=== PATIENT | male | born 1950 | race Two or more races ===

== ENCOUNTER 2025-04-09 13:52 | Emergency (ER) | payer OTHER, SELFPAY ==
[2025-04-09 13:53] VITALS: BMI 26.3
[2025-04-09 14:10] VITALS: BP 174/84; PULSE 60; RESP 18; TEMP 36.8; O2SAT 97
--- NOTE | 2025-04-09 14:18 | EDNOTE_ITS ---
ED Wound/Laceration-RME/HPI General Chief Complaint: Wound/Laceration Stated Complaint: LAC TO HEAD Time Seen by Provider: 04/09/25 14:01 Source: patient Arrival date/time: 04/09/25 13:52 Mode of arrival: ambulatory Limitations: no limitations RME / HPI Place: other Patient tetanus UTD: Yes Context: accidental Associated symptoms: pain RME / HPI narrative: This patient is an otherwise healthy 74-year-old male who arrives to the ED today for evaluation of a superior left-sided head laceration sustained approximately 1 hour prior to arrival. [place] on a cabinet. Patient received some [place] at the casino and arrives with a friend on a nonactive bleeding laceration. Patient denies any LOC. Patient's tetanus is up-to-date. Related Data Previous Rx's ?Medication ?Instructions ?Recorded cephalexin 250 mg capsule 250 mg PO Q8H 7 days #21 cap s 04/09/25 ibuprofen 600 mg tablet (IBU) 600 mg PO Q6H PRN fever or pain 04/09/25 #20 tabs Allergies Allergy/AdvReac Type Severity Reaction Status Date / Time No Known Allergies Allergy Verified 04/09/25 13:54 Review of Systems Review of Systems Systems Reviewed: All systems reviewed, normal except as documented Past Medical History Past Medical History NEUROLOGIC: Negative Neurological Disorders CARDIAC: Negative Cardiac Disorders GENITOURINARY: Negative Genitourinary Disorders Social History SMOKING STATUS: Never smoker ED Exam Narrative Physical exam: Patient arrives with a bandage head wound. Patient does not look toxic. General Limitations: Present no limitations General appearance: Present alert and in no apparent distress Head Head exam: Present other (Patient displays a 5 cm vertical laceration to the left side superior scalp. Mild active bleed. Wound is not deep. No skull depression or deformities.) Eye Eye exam: Present normal appearance, PERRL and EOMI ENT ENT exam: Present normal exam, normal oropharynx and mucous membranes moist Neck Neck exam: Present normal inspection, full ROM and trachea midline Chest Chest inspection: Present normal inspection and symmetric chest wall rise Respiratory Respiratory exam: Present normal lung sounds bilaterally Cardiovascular Cardiovascular exam: Present regular rate, normal rhythm and normal heart sounds Abdominal Exam Abdominal exam: Present soft and normal bowel sounds Extremities Exam Extremities exam: Present normal inspection and full ROM Back Exam Back exam: Present normal inspection and full ROM Neurological Exam Neurological exam: Present alert, oriented X3 and CN II-XII intact Psychiatric Psychiatric exam: Present normal affect and normal mood Skin Skin exam: Present warm, dry, intact and normal color Course Quality Measures none Vital Signs Vital signs: Vital Signs Temperature 98.3 F 04/09/25 14:10 Pulse Rate 60 04/09/25 14:10 Respiratory Rate 18 04/09/25 14:10 Blood Pressure 174/84 H 04/09/25 14:10 Pulse Oximetry (%) 97 04/09/25 14:10 Oxygen Delivery Method Room Air 04/09/25 14:10 As noted above PROCEDURES: Procedure Comment Sterile field was placed on the left sided 5 cm superior scalp laceration. Copious irrigation performed. 4 cezar were placed without event. Minimal blood loss. Patient tolerated procedure well. Clean dressing applied. Wound / Laceration MDM Narrative MDM Narrative:: Patient tolerated stable procedure well. Advised patient to utilize antibiotics as directed to completion, pain medication as needed and patient has been advised to do daily dressing changes. Patient to return to ED or primary care provider in 10 days for reevaluation and possible staple removal. Patient data External records reviewed:: [facility] previous records Clinical information provided by:: patient Social determinants that could affect healthcare access:: none Patient has the following chronic illnesses:: None How is presenting disease/condition affected by chronic disease/condition?: uneffected by Evaluation data The following diagnostics were reviewed and interpreted by me:: other (specify) (None) Lab and/or radiology exams considered but not ordered:: None Interpretation Summary: None Medications / Prescriptions Medications or Prescriptions considered but not ordered:: None Medication administrations:: None Consultations Consultation(s) initiated? (list below): No Diagnosis Wound Differential Diagnosis: laceration Most likely diagnosis given after review of the tests above:: Scalp laceration Admission Indicated Admission indicated?: not indicated Explain why admission is indicated or not indicated:: Unwarranted Admission Request Was there a request for admission?: No Disposition Plan Disposition Plan: Discharge Discharge Attestation Discharge Attestation: The patient and all family members were given an opportunity to ask questions and understood the discharge instructions. Discharge instructions specifically effects, indications for sooner follow up or return to the emergency department, and the expected course of current diagnosis. Patient condition: Stable Discharge Plan Plan Patient Disposition: HOME (Self Care) Prescriptions/Referrals Prescriptions/Med Rec: New cephalexin 250 mg capsule 250 mg PO Q8H 7 Days Qty: 21 0RF ibuprofen [IBU] 600 mg tablet 600 mg PO Q6H PRN (Reason: fever or pain) Qty: 20 0RF Referrals: Michael Larios DO [Primary Care Provider, [facility]] - In 1 week Problem List Clinical Impression: Laceration Patient/Caregiver Discharge Instructions Additional Instructions: Patient to utilize antibiotics as directed and to completion as well as pain medication as needed. Patient to return to ED or primary care provider in 10 days for reevaluation and probable staple removal. Print Language: Taiwanese Stand Alone Forms: Mini Award Info., Patient Portal Info Letter
== END 2025-04-09 15:31 | disposition home or self-care (01) ==
PROVIDERS: Emergency Provider Emergency Medicine; PCP Family Medicine
DX: S01.01XA Laceration without foreign body of scalp, initial encounter (principal); W22.8XXA Striking against or struck by other objects, initial encounter; Y92.59 Other trade areas as the place of occurrence of the external cause; Y99.0 Civilian activity done for income or pay
CPT/HCPCS: 12002; 99281